=== PATIENT | female | born 1975 | race Caucasian/White ===

== ENCOUNTER 2016-04-22 15:47 | Emergency (ER) | payer SELFPAY ==
[~2016-04-22 15:47] MED LIST: Donnatal Elixir 16.2 MG/5 ML UDCUP ONE
[2016-04-22] MEDS ORDERED: Donnatal Elixir 16.2 MG/5 ML UDCUP ONE (16:03)
[2016-04-22] MEDS ORDERED: Diazepam 5 MG TAB ONE (16:03)
[2016-04-22] MEDS ORDERED: Lidocaine Viscous Sol 2% 15 ml UD Cup ONE (16:12)
[2016-04-22] MEDS ORDERED: Mag-Al Plus 1200 MG/1200 MG/120 MG/30 ML UDCUP ONE (16:12)
[2016-04-22 16:13] LABS: #Basophils 0.1 thou/uL (0.0-0.2); #Eosinphils 0.1 thou/uL (0.0-0.7); #Lymphocytes 3.1 thou/uL (1.20-3.40); #Monocytes 0.6 thou/uL (0.11-0.59); #Neutrophils 6.9 thou/uL (1.40-6.50); %Basophils 1.2 % (0.0-1.0); %Eosinophils 0.7 % (0.0-10.0); %Lymphocytes 28.6 % (21.0-51.0); %Monocytes 5.4 % (0.0-10.0); Hemoglobin 16.7 g/dL (12.0-16.0); Mean Corpuscular Hemoglobin 32.2 pg (27.0-31.0); Mean Corpuscular Volume 91.9 fl (81.0-99.0); Mean Platelet Volume 7.8 fL (7.4-10.4); Platelet Count 285 thou/uL (130-400); Red Blood Cell (RBC) Count 5.18 mill/uL (4.20-5.40); White Blood Cell (WBC) Count 10.8 thou/uL (4.8-10.8)
--- NOTE | 2016-04-22 16:23 | RAD ---
CHEST ONE VIEW 04/22/16 HISTORY: Chest pain. FINDINGS: No comparison. The cardiac silhouette is magnified by projection. Pulmonary vasculature is unremarka ble. Mediastinum is midline. There is no confluent air space consolidation, or evidence of pneumotho rax. laboratory monitor leads overlie the chest. IMPRESSION: No active cardiopulmonary abnormalities are demonstrated. POS: [facility]
[2016-04-22 16:33] LABS: ALT (SGPT) 23 U/L (0-55); AST (SGOT) 22 U/L (5-34); Albumin 4.7 g/dL (3.5-5.0); Alkaline Phosphatase 171 U/L (40-150); Anion Gap 19 mmol/L (10-20); BUN (Urea Nitrogen) 11 mg/dL (7.0-18.7); Bilirubin, Total 0.5 mg/dL (0.2-1.2); Calc. Creatinine Clearance 0 mL/min (70-130); Calcium 9.9 mg/dL (7.8-10.44); Carbon Dioxide 23 mmol/L (22-29); Chloride 99 mmol/L (98-107); Estimated GFR-MDRD 84; Globulin 3.1 g/dL (2.4-3.5); Glucose 113 mg/dL (70-105); Potassium 4.8 mmol/L (3.5-5.1); Protein, Total 7.8 g/dL (6.0-8.3); Sodium 136 mmol/L (136-145)
[2016-04-22 16:35] LABS: CKMB 4.1 ng/mL (0-6.6); Troponin I Less than 0.010 ng/mL (< 0.028)
--- NOTE | 2016-04-22 16:44 | ERRECORD ---
[facility] EMERGENCY RECORD HPI CHEST PAIN (16:03 SHAN) CHIEF COMPLAINT: Patient presents for evaluation of chest pain. HISTORIAN: History provided by patient, History provided by patient's family, pain for about 1.5 to 2 hours; much anxiety, hurting all over; more in back and chest. TIME COURSE: Gradual onset of symptoms. ASSOCIATED WITH: No associated symptoms. EXACERBATED BY: Patient's condition exacerbated by nothing. ROS (16:04 SHAN) CONSTITUTIONAL: Negative constitutional review of systems, Historian denies chills, denies fever. EYES: Negative eye review of systems. ENT: Negative ears, nose, throat review of systems. CARDIOVASCULAR: Negative cardiovascular review of systems, Historian denies chest pain, Historian denies palpitations. Chest pain. RESPIRATORY: Negative respiratory review of systems, Historian denies cough, denies shortness of breath. GI: Negative gastrointestinal review of systems, Historian denies abdominal pain, denies constipation, denies diarrhea. MUSCULOSKELETAL: Negative musculoskeletal review of systems. SKIN: Negative skin review of systems. NEUROLOGIC: Negative neurologic review of systems. ENDOCRINE: Negative endocrine review of systems. HEMO/LYMPHATIC: Normal hematologic/lymphatic system review. PSYCHIATRIC: Negative psychiatric review of systems. NOTES: All other ROS is negative except as listed in HPI. PAST MEDICAL HISTORY MEDICAL HISTORY: Notes: GRAVES DISEASE, Past medical history includes history of hypertension, which has been treated, Patient is compliant. (ThuApr 22, 2016 15:52 MDEB) FEMALE SURGICAL HISTORY: FRANKLIN MASTECTOMIES WITH RECONSTRUCTION. (15:52 MDEB) NOTES: I have reviewed and agree with the PMH/PSxH/FamHx/SocHx obtained by the nurse. (16:04 SHAN) KNOWN ALLERGIES codeine sulfate (Unconfirmed) Penicillins (Unconfirmed) CURRENT MEDICATIONS amLODIPine: TABLET : Strength - 5 mg : ORAL Patient Dose: 1 tab(s) Oral once a day. (16:44 MDEB) lisinopril: TABLET : Strength - 20 mg : ORAL &a-1R&a+25V*p+0X*c7322Q*c202B*c15G*c2P*p-0X&a-25V&a+1R Name: Ann Frances : 1975 F40 MedRec: [id number] AcctNum: [id number] Prepared: Declan Apr 22, 2016 17:39 by Interface Page 1 of 3 pMD [facility] EMERGENCY RECORD Patient Dose: 1 tab(s) Oral once a day. (16:44 MDEB) methimazole: TABLET : Strength - 10 mg : ORAL Patient Dose: 1 tab(s) Oral once a day. (16:45 MDEB) VITAL SIGNS (15:52 MDEB) VITAL SIGNS: BP: 172/95, Pulse: 93, Resp: 27, Temp: 97.2 (Tympanic), Pain: 8, O2 sat: 100 on Room Air, Time: 04/22/2016 15:52. PHYSICAL EXAM (16:04 SHAN) CONSTITUTIONAL: Vital signs reviewed, Patient appears non toxic, Patient alert and oriented to person, place and time, Pt is in no apparent distress. HEAD: Head exam included findings of head atraumatic, normocephalic. EYES: Eye exam included findings of eyelids normal to inspection, Pupils equally round and reactive to light, Extraocular muscles intact. ENT: ENT exam normal, Nose exam normal, no nasal deformity, no bleeding from nares, Pharynx exam normal, Mouth exam normal, mucous membranes moist. NECK: Neck exam included findings of normal range of motion, Trachea midline. RESPIRATORY CHEST: Respiratory and chest exam normal, Breath sounds clear, No wheezing, No rales, Chest exam included findings of chest movement symmetrical, Chest expansion equal. CARDIOVASCULAR: Cardiovascular assessment normal, Cardiovascular exam included findings of heart rate regular rate and rhythm, Heart sounds normal. ABDOMEN FEMALE: Abdominal exam included findings of abdomen nontender, Bowel sounds normal, no mass, no pulsatile masses, no peritoneal signs. BACK: Back exam included findings of normal inspection, range of motion normal, no costovertebral angle tenderness. UPPER EXTREMITY: Upper extremity exam included findings of inspection normal, Range of motion normal. LOWER EXTREMITY: Lower extremity exam included findings of inspection normal, Range of motion normal. NEURO: Neuro exam findings include patient oriented to person, place and time, Speech normal, no focal motor deficits, no focal sensory deficits. SKIN: Skin exam included findings of skin warm, dry, and normal in color. LYMPHATIC: Lymphatic exam normal. PSYCHIATRIC: Psychiatric exam included findings of patient oriented to person place and time, Normal affect. MEDICATION ADMINISTRATION SUMMARY Drug Name: Valium oral, Dose Ordered: 1 tab(s), Route: Oral, Status: &a-1R&a+25V*p+0X*q4150D*c202B*c15G*c2P*p-0X&a-25V&a+1R Name: Ann Frances : 1975 F40 MedRec: [id number] AcctNum: [id number] Prepared: Declan Apr 22, 2016 17:39 by Interface Page 2 of 3 pMD [facility] EMERGENCY RECORD Given, Time: 16:10 04/22/2016, Drug Name: GI COCKTAIL- GREEN, Dose Ordered: 40 mL, Route: Oral, Status: Given, Time: 16:05 04/22/2016, Detailed record available in Medication Service section. DOCTOR NOTES TEXT: Very anxious patient; relates 'they are playing with my thryroid meds; c/o muscle spasms, and chest and back pain. (16:05 ZACH) Doing better; does not appear to be cardiac; accucheck is erroneous from another chart. (16:41 ZACH) Exam and history more compatible with anxiety, economic and social stresses. Discussed. (17:09 ZACH) PATIENT STATUS: Patient has improved since arrival to emergency department. (16:05 ZACH) DATA REVIEWED: Lab data reviewed, Xray data reviewed, Reviewed EKG. (16:41 ZACH) PROBLEM LIST No recorded problems DIAGNOSIS (17:10 ZACH) FINAL: PRIMARY: Anxiety, ADDITIONAL: atypical chest pain. PRESCRIPTION (17:11 ZACH) Vistaril oral: CAPSULE : 25 mg : ORAL : Quantity: 1 Unit: cap(s) Route: ORAL Schedule: every 4 hours prn Dispense: 50 Unit: cap(s) May substitute. Refills: 2 . NOTES: on up to every 4 hours if needed for anxiety or atypical chest pain. No Refills. DISPOSITION PATIENT: Disposition Type: Discharge, Disposition: *Discharge Home. (17:10 ZACH) Patient left the department. (17:34 HEMANT) Feliciano: HEMANT=RAMIREZ Lucas, Enedina SERRANO=MD Parikh Stanley &a-1R&a+25V*p+0X*q8331O*c202B*c15G*c2P*p-0X&a-25V&a+1R Name: Ann Frances : 1975 F40 MedRec: [id number] AcctNum: [id number] Prepared: Declan Apr 22, 2016 17:39 by Interface Page 3 of 3 pMD MTDD
[2016-04-22 16:53] LABS: Thyroid Stimulating Hormone Less than 0.0025 uIU/mL (0.35-4.94)
--- NOTE | 2016-04-22 16:55 | PICIS ---
[facility] EMERGENCY RECORD TRIAGE (ThuApr 22, 2016 15:52 MDEB) PATIENT: NAME: Ann Frances, AGE: 40, GENDER: female, : Thu1975, TIME OF GREET: ThuApr 22, 2016 15:48, PREFERRED LANGUAGE: Guinean, RACE: WHITE, ETHNICITY: Not or , ECODE BILLING MAP: [facility], SSN: [id number], Zip Code: [address], KG WEIGHT: 63.50, PHONE: , , , PERSON ID: [id number], PCP: danielle. TRIAGE NOTES: BACK PAIN, CHEST PAIN - PAIN INCREASED WITH MOVEMENT ET DEEP BREATHING. COMPLAINT: HIGH RISK COMPLAINT: CHEST PAIN. ADMISSION: URGENCY: 3 Urgent, ADMISSION SOURCE: Home, TRANSPORT: Walk-in, BED: TRIAGE. PAIN: Patient complains of pain described as, aching, on a scale 0-10 patient rates pain as 8. PROVIDERS: TRIAGE NURSE: Enedina Lucas RN. PREVIOUS VISIT ALLERGIES: codeine sulfate, Penicillins. KNOWN ALLERGIES codeine sulfate (Unconfirmed) Penicillins (Unconfirmed) CURRENT MEDICATIONS amLODIPine: TABLET : Strength - 5 mg : ORAL Patient Dose: 1 tab(s) Oral once a day. (16:44 MDEB) lisinopril: TABLET : Strength - 20 mg : ORAL Patient Dose: 1 tab(s) Oral once a day. (16:44 MDEB) methimazole: TABLET : Strength - 10 mg : ORAL Patient Dose: 1 tab(s) Oral once a day. (16:45 MDEB) VITAL SIGNS (15:52 MDEB) VITAL SIGNS: BP: 172/95, Pulse: 93, Resp: 27, Temp: 97.2 (Tympanic), Pain: 8, O2 sat: 100 on Room Air, Time: 04/22/2016 15:52. NURSING PROCEDURE: EKG CHART (15:59 SFRE) EKG: EKG indicated for complaint of chest pain, 12 lead EKG performed on the left chest, done by ramirez conner, first EKG. FOLLOW-UP: After procedure, EKG for interpretation given to Dr. parikh. NURSING PROCEDURE: NURSE NOTES (16:45 MDEB) NURSES NOTES: Notes: PT REPORTS SHE STILL HAS CHEST PAIN WITH BREATHING. DR PARIKH NOTIFED. ORDER DETAILS Order Name: [employer] [facility], Status: Done, Time: 16:00 04/22/2016, &a-1R&a+25V*p+0X*p0764F*c202B*c15G*c2P*p-0X&a-25V&a+1R Name: Ann Frances : 1975 F40 MedRec: [id number] AcctNum: [id number] Prepared: Declan Apr 22, 2016 17:45 by Interface Page 1 of 8 pMD [facility] EMERGENCY RECORD User: HEMANT, - Ordered for: MD Parikh Stanley, - Entered by: MD Parikh Stanley - Tue Apr 22, 2016 15:59, - Quantity: 1, Order Name: Cardiac Profile w/CKMB & Troponin - I, Status: Active, Time: 15:59 04/22/2016, User: ZACH, - Ordered for: MD Parikh Stanley, - Entered by: MD Parikh Stanley - Tue Apr 22, 2016 15:59, - Quantity: 1, Order Name: CBC with Differential, Status: Active, Time: 15:59 04/22/2016, User: ZACH, - Ordered for: MD Parikh Stanley, - Entered by: MD Parikh Stanley - Tue Apr 22, 2016 15:59, - Quantity: 1, Order Name: Comprehensive Metabolic Panel, Status: Active, Time: 15:59 04/22/2016, User: ZACH, - Ordered for: MD Parikh Stanley, - Entered by: MD Parikh Stanley - Tue Apr 22, 2016 15:59, - Quantity: 1, Order Name: D-Dimer (Quantitative), Status: Active, Time: 16:02 04/22/2016, User: ZACH, - Ordered for: MD Parikh Stanley, - Entered by: MD Parikh Stanley - Tue Apr 22, 2016 16:02, - Quantity: 1, Order Name: EKG 12 Lead in Emergency Room, Status: Active, Time: 15:59 04/22/2016, User: ZACH, - Ordered for: MD Parikh Stanley, - Entered by: MD Parikh Stanley - Tue Apr 22, 2016 15:59, - Quantity: 1, Order Name: Free T4 (Free Thyroxine), Status: Active, Time: 16:05 04/22/2016, User: ZACH, - Ordered for: MD Parikh Stanley, - Entered by: MD Parikh Stanley - Tue Apr 22, 2016 16:05, - Quantity: 1, Order Name: Thyroid Stimulating Hormone, Status: Active, Time: 16:06 04/22/2016, User: ZACH, - Ordered for: MD Parikh Stanley, - Entered by: MD Parikh Stanley - Tue Apr 22, 2016 16:06, - Quantity: 1, Order Name: XR Chest 1 View Portable, Status: Active, Time: 16:00 04/22/2016, User: ZACH, - Ordered for: MD Parikh Stanley, - Entered by: MD Parikh Stanley - Tue Apr 22, 2016 16:00, - Quantity: 1. MEDICATION ADMINISTRATION SUMMARY Drug Name: Valium oral, Dose Ordered: 1 tab(s), Route: Oral, Status: Given, Time: 16:10 04/22/2016, Drug Name: GI COCKTAIL- GREEN, Dose Ordered: 40 mL, Route: Oral, &a-1R&a+25V*p+0X*m8617R*c202B*c15G*c2P*p-0X&a-25V&a+1R Name: Ann Frances : 1975 F40 MedRec: [id number] AcctNum: [id number] Prepared: ThuApr 22, 2016 17:45 by Interface Page 2 of 8 pMD [facility] EMERGENCY RECORD Status: Given, Time: 16:05 04/22/2016, Detailed record available in Medication Service section. MEDICATION SERVICE GI COCKTAIL- GREEN: Order: GI COCKTAIL- GREEN - Dose: 40 mL : Oral (phenobarbital/hyoscyamine sulfate/atropine sulfate/scopolamine hydrobromide) [10 mL] Lidocaine Viscous (lidocaine HCl) [10 mL] MAG-AL (magnesium hydroxide/aluminum hydroxide) [20 mL] Ordered by: Monty Parikh MD Entered by: Monty Parikh MD [facility] Apr 22, 2016 16:02 , Acknowledged by: Enedina Lucas RN Apr 22, 2016 16:02 Documented as given by: Enedina Lucas RN [facility] Apr 22, 2016 16:05 Patient, Medication, Dose, Route and Time verified prior to administration. Amount given: 40 ML, Site: Medication administered P.O., Correct patient, time, route, dose and medication confirmed prior to administration, Patient advised of actions and side-effects prior to administration, Allergies confirmed and medications reviewed prior to administration, Patient in position of comfort, Side rails up, Cart in lowest position, Family at bedside. Valium oral: Order: Valium oral (diazepam) - Dose: 1 tab(s) : Oral Schedule: Now Ordered by: Monty Parikh MD Entered by: Monty Parikh MD [facility] Apr 22, 2016 16:01 , Acknowledged by: Enedina Lucas RN [facility] Apr 22, 2016 16:02 Documented as given by: Enedina Lucas RN [facility] Apr 22, 2016 16:10 Patient, Medication, Dose, Route and Time verified prior to administration. Amount given: 10 MG, Site: Medication administered P.O., Correct patient, time, route, dose and medication confirmed prior to administration, Patient advised of actions and side-effects prior to administration, Allergies confirmed and medications reviewed prior to administration, Patient in position of comfort, Side rails up, Cart in lowest position, Family at bedside. HPI CHEST PAIN (16:03 ) CHIEF COMPLAINT: Patient presents for evaluation of chest pain. HISTORIAN: History provided by patient, History provided by patient's family, pain for about 1.5 to 2 hours; much anxiety, hurting all over; more in back and chest. TIME COURSE: Gradual onset of symptoms. ASSOCIATED WITH: No associated symptoms. EXACERBATED BY: Patient's condition exacerbated by nothing. ROS (16:04 SHAN) CONSTITUTIONAL: Negative constitutional review of systems, &a-1R&a+25V*p+0X*l3618F*c202B*c15G*c2P*p-0X&a-25V&a+1R Name: Ann Frances : 1975 F40 MedRec: [id number] AcctNum: [id number] Prepared: ThuApr 22, 2016 17:45 by Interface Page 3 of 8 pMD [facility] EMERGENCY RECORD Historian denies chills, denies fever. EYES: Negative eye review of systems. ENT: Negative ears, nose, throat review of systems. CARDIOVASCULAR: Negative cardiovascular review of systems, Historian denies chest pain, Historian denies palpitations. Chest pain. RESPIRATORY: Negative respiratory review of systems, Historian denies cough, denies shortness of breath. GI: Negative gastrointestinal review of systems, Historian denies abdominal pain, denies constipation, denies diarrhea. MUSCULOSKELETAL: Negative musculoskeletal review of systems. SKIN: Negative skin review of systems. NEUROLOGIC: Negative neurologic review of systems. ENDOCRINE: Negative endocrine review of systems. HEMO/LYMPHATIC: Normal hematologic/lymphatic system review. PSYCHIATRIC: Negative psychiatric review of systems. NOTES: All other ROS is negative except as listed in HPI. PAST MEDICAL HISTORY MEDICAL HISTORY: Notes: GRAVES DISEASE, Past medical history includes history of hypertension, which has been treated, Patient is compliant. (ThuApr 22, 2016 15:52 MDEB) FEMALE SURGICAL HISTORY: FRANKLIN MASTECTOMIES WITH RECONSTRUCTION. (15:52 MDEB) NOTES: I have reviewed and agree with the PMH/PSxH/FamHx/SocHx obtained by the nurse. (16:04 SHAN) PHYSICAL EXAM (16:04 SHAN) CONSTITUTIONAL: Vital signs reviewed, Patient appears non toxic, Patient alert and oriented to person, place and time, Pt is in no apparent distress. HEAD: Head exam included findings of head atraumatic, normocephalic. EYES: Eye exam included findings of eyelids normal to inspection, Pupils equally round and reactive to light, Extraocular muscles intact. ENT: ENT exam normal, Nose exam normal, no nasal deformity, no bleeding from nares, Pharynx exam normal, Mouth exam normal, mucous membranes moist. NECK: Neck exam included findings of normal range of motion, Trachea midline. RESPIRATORY CHEST: Respiratory and chest exam normal, Breath sounds clear, No wheezing, No rales, Chest exam included findings of chest movement symmetrical, Chest expansion equal. CARDIOVASCULAR: Cardiovascular assessment normal, Cardiovascular exam included findings of heart rate regular rate and rhythm, Heart sounds normal. ABDOMEN FEMALE: Abdominal exam included findings of abdomen nontender, Bowel sounds normal, no mass, no pulsatile masses, no &a-1R&a+25V*p+0X*t6139M*c202B*c15G*c2P*p-0X&a-25V&a+1R Name: Ann Frances : 1975 F40 MedRec: [id number] AcctNum: [id number] Prepared: ThuApr 22, 2016 17:45 by Interface Page 4 of 8 pMD [facility] EMERGENCY RECORD peritoneal signs. BACK: Back exam included findings of normal inspection, range of motion normal, no costovertebral angle tenderness. UPPER EXTREMITY: Upper extremity exam included findings of inspection normal, Range of motion normal. LOWER EXTREMITY: Lower extremity exam included findings of inspection normal, Range of motion normal. NEURO: Neuro exam findings include patient oriented to person, place and time, Speech normal, no focal motor deficits, no focal sensory deficits. SKIN: Skin exam included findings of skin warm, dry, and normal in color. LYMPHATIC: Lymphatic exam normal. PSYCHIATRIC: Psychiatric exam included findings of patient oriented to person place and time, Normal affect. EVENTS TRANSFER: Triage to Emergency Triage. (ThuApr 22, 2016 15:52 MDEB) Emergency Triage to Main ED -05. (15:52 MDEB) Removed from Emergency Main ED -05. (17:34 MDEB) DOCTOR NOTES TEXT: Very anxious patient; relates 'they are playing with my thryroid meds; c/o muscle spasms, and chest and back pain. (16:05 SHAN) Doing better; does not appear to be cardiac; accucheck is erroneous from another chart. (16:41 SHAN) Exam and history more compatible with anxiety, economic and social stresses. Discussed. (17:09 SHAN) PATIENT STATUS: Patient has improved since arrival to emergency department. (16:05 SHAN) DATA REVIEWED: Lab data reviewed, Xray data reviewed, Reviewed EKG. (16:41 SHAN) PROBLEM LIST No recorded problems DIAGNOSIS (17:10 SHAN) FINAL: PRIMARY: Anxiety, ADDITIONAL: atypical chest pain. DISPOSITION PATIENT: Disposition Type: Discharge, Disposition: *Discharge Home. (17:10 SHAN) Patient left the department. (17:34 MDEB) INSTRUCTION (17:22 SHAN) DISCHARGE: ANXIETY REACTION, ATYPICAL CHEST PAIN UNKNOWN CAUSE. SPECIAL: 1. vistaril as directed if needed for anxiety &a-1R&a+25V*p+0X*v8560J*c202B*c15G*c2P*p-0X&a-25V&a+1R Name: Ann Frances : 1975 F40 MedRec: [id number] AcctNum: [id number] Prepared: ThuApr 22, 2016 17:45 by Interface Page 5 of 8 pMD [facility] EMERGENCY RECORD 2. try to find personal time and also start a self satisfying habit and allot it some additional personal time every day 3. followup soon with regular provider 4. return if condition worsens. PRESCRIPTION (17:11 [facility]) Vistaril oral: CAPSULE : 25 mg : ORAL : Quantity: 1 Unit: cap(s) Route: ORAL Schedule: every 4 hours prn Dispense: 50 Unit: cap(s) May substitute. Refills: 2 . NOTES: on up to every 4 hours if needed for anxiety or atypical chest pain. No Refills. [facility] *EKG: Image captured from scanner. ADMIN DIGITAL SIGNATURE: MD Parikh Stanley. (16:25 [facility]) MD Parikh Stanley. (17:28 [facility]) RESULTS RADIOLOGY: XR Chest 1 View Portable Observe DT: ThuApr 22, 2016 16:02, CXRP CHEST ONE VIEW 04/22/16 HISTORY: Chest pain. FINDINGS: No comparison. The cardiac silhouette is magnified by projection. Pulmonary vasculature is unremarka ble. Mediastinum is midline. There is no confluent air space consolidation, or evidence of pneumotho rax. cardiac monitor technician leads overlie the chest. IMPRESSION: No active cardiopulmonary abnormalities are demonstrated. POS: [facility] . (16:28 [facility]) LABORATORY: CBC with Differential Collection DT: ThuApr 22, 2016 16:09, White Blood Cell (WBC) Count 10.8 thou/uL, Range (4.8-10.8), Red Blood Cell (RBC) Count 5.18 mill/uL, Range (4.20-5.40), *Hemoglobin 16.7 - H g/dL, Range (12.0-16.0), *Hematocrit 47.6 - H %, Range (36.0-47.0), Mean Corpuscular Volume 91.9 fl, Range (81.0-99.0), &a-1R&a+25V*p+0X*y5894C*c202B*c15G*c2P*p-0X&a-25V&a+1R Name: Ann Frances : 1975 F40 MedRec: [id number] AcctNum: [id number] Prepared: ThuApr 22, 2016 17:45 by Interface Page 6 of 8 pMD [facility] EMERGENCY RECORD *Mean Corpuscular Hemoglobin 32.2 - H pg, Range (27.0-31.0), Mean Corpuscular HGB CONC 35.0 g/dL, Range (32.0-36.0), RBC Distribution Width 12.0 %, Range (11.5-14.5), Platelet Count 285 thou/uL, Range (130-400), Mean Platelet Volume 7.8 fL, Range (7.4-10.4), %Neutrophils 64.0 %, Range (42.0-75.0), %Lymphocytes 28.6 %, Range (21.0-51.0), %Monocytes 5.4 %, Range (0.0-10.0), %Eosinophils 0.7 %, Range (0.0-10.0), *%Basophils 1.2 - H %, Range (0.0-1.0), *#Neutrophils 6.9 - H thou/uL, Range (1.40-6.50), #Lymphocytes 3.1 thou/uL, Range (1.20-3.40), *#Monocytes 0.6 - H thou/uL, Range (0.11-0.59), #Eosinphils 0.1 thou/uL, Range (0.0-0.7), #Basophils 0.1 thou/uL, Range (0.0-0.2). (16:22 ZACH) Accuchek Collection DT: ThuApr 22, 2016 16:03, *Accuchek 290 - H mg/dL, Range (70-110). (16:22 ZACH) D-Dimer (Quantitative) Collection DT: ThuApr 22, 2016 16:09, *D-Dimer Test Less than 0.27 - L *mcg/mL, Range (0.27-0.43), * Reference Range Units: mcg/mL of fibrinogen equivalent, units(FEU) Based upon a retrospective study of [facility] patients in August 2005, a result of Less than 0.44 mcg/mL FEU is, predictive of the absence of a DVT or PE. . (16:29 SFRE) Cardiac Profile w/CKMB & TropI Collection DT: ThuApr 22, 2016 16:09, CKMB 4.1 ng/mL, Range (0-6.6), Troponin I Less than 0.010 ng/mL, Range (< 0.028), Reference Range , 0.00 - 0.028 ng/mL Negative 0.029 - 0.29 ng/mL , Indeterminate Greater or Equal to 0.3 ng/mL Strongly suggests IA , . (16:41 SHAN) Comprehensive Metabolic Panel Collection DT: ThuApr 22, 2016 16:09, Sodium 136 mmol/L, Range (136-145), Potassium 4.8 mmol/L, Range (3.5-5.1), Chloride 99 mmol/L, Range (98-107), Carbon Dioxide 23 mmol/L, Range (22-29), Anion Gap 19 mmol/L, Range (10-20), BUN (Urea Nitrogen) 11 mg/dL, Range (7.0-18.7), Creatinine 0.76 mg/dL, Range (0.6-1.1), Estimated GFR-MDRD 84 , Reference Range for Estimated GFR: Greater than 90, mL/min/1.73 m2 NOTE: The MDRD equation has not been validated for use, with the elderly (over 70 years of age), women, patients with, serious comorbid condition or persons with extremes of &a-1R&a+25V*p+0X*i9181I*c202B*c15G*c2P*p-0X&a-25V&a+1R Name: Ann Frances : 1975 F40 MedRec: [id number] AcctNum: [id number] Prepared: ThuApr 22, 2016 17:45 by Interface Page 7 of 8 pMD [facility] EMERGENCY RECORD body size, muscle, mass, or nutritional status. , *Glucose 113 - H mg/dL, Range (70-105), Calcium 9.9 mg/dL, Range (7.8-10.44), Bilirubin, Total 0.5 mg/dL, Range (0.2-1.2), Protein, Total 7.8 g/dL, Range (6.0-8.3), NOTE: Plasma values are generally 0.3 to 0.5 g/dL higher than serum values, due to the presence of fibrinogen. , Albumin 4.7 g/dL, Range (3.5-5.0), Globulin 3.1 g/dL, Range (2.4-3.5), Alb/Glob Ratio 1.5 g/dL, Range (1.2-2.2), *Alkaline Phosphatase 171 - H U/L, Range (40-150), AST (SGOT) 22 U/L, Range (5-34), ALT (SGPT) 23 U/L, Range (0-55). (16:41 ZACH) Thyroid Stimulating Hormone Collection DT: ThuApr 22, 2016 16:09, *Thyroid Stimulating Hormone Less than 0.0025 - uIU/mL, * L , Range (0.35-4.94). (17:09 ZACH) Free T4 (Free Thyroxine) Collection DT: ThuApr 22, 2016 16:09, Free T4 (Free Thyroxine) 1.00 ng/dL, Range (0.70-1.48). (17:09 ZACH) Feliciano: HEMANT=RAMIREZ Lucas, Enedina ALCANTARA=RAMIREZ Mckeon, Corinna SERRANO=MD Kati, Monty &a-1R&a+25V*p+0X*i4128U*c202B*c15G*c2P*p-0X&a-25V&a+1R Name: Ann Frances : 1975 1 MedRec: [id number] AcctNum: [id number] Prepared: ThuApr 22, 2016 17:45 by Interface Page 8 of 8 pMD MTDD
== END 2016-04-22 17:32 | disposition home or self-care (01) ==
LOC: MADERS 15:47
DX: F41.9 Anxiety disorder, unspecified (principal); I10 Essential (primary) hypertension
CPT/HCPCS: 36416; 71010; 80053; 82553; 84439; 84443; 84484; 85025; 85379; 93005; 36415-59

== ENCOUNTER 2016-12-25 15:30 | Outpatient (CLI) | payer MEDICARE, MEDICAID ==
--- NOTE | 2016-12-25 18:38 | RAD ---
THORACIC SPINE TWO VIEWS: 12/25/16 HISTORY: Arm paresthesia, back pain. FINDINGS/IMPRESSION: There are degenerative changes in the spine. No acute fracture or subluxation or bony destruction id entified. If there is concern for radiculopathy, neuropathy or myelopathy, further evaluation with MRI should be performed. POS: [facility]
--- NOTE | 2016-12-25 18:40 | RAD ---
CERVICAL SPINE: 12/25/16 Seven views. HISTORY: Neck pain with arm paresthesias. Cervical vertebrae maintain height and alignment. Disc spaces are maintained. Very mild degenerative spurring is seen. Foramina appear patent. IMPRESSION: Very mild degenerative changes of the cervical spine. POS: [facility]
== END 2016-12-25 15:31 | disposition home or self-care (01) ==
LOC: MADRAD 15:30
PROVIDERS: ATTEND Family Medicine
DX: R20.2 Paresthesia of skin (principal)
CPT/HCPCS: 72052; 72072

== ENCOUNTER 2017-01-08 15:20 | Outpatient (CLI) | payer MEDICARE, MEDICAID ==
--- NOTE | 2017-01-08 18:18 | RAD ---
LUMBAR SPINE RADIOGRAPHS 3 VIEWS: Date: 01/08/17 CLINICAL HISTORY: Acute bilateral lumbar pain. FINDINGS: There is prominent degenerative hypertrophy of the region of the facet joints at the lower lumbar sp ine/lumbosacral junction. There is a mild levocurvature centered at the upper to mid lumbar spine. N o compression fracture. No obvious subluxation on the lateral projection. IMPRESSION: Degenerative changes of lumbar spine without acute osseous abnormality visualized. POS: ISAIAH
== END 2017-01-08 15:21 | disposition home or self-care (01) ==
LOC: MADRAD 15:20
PROVIDERS: ATTEND Family Medicine
DX: M54.5 Low back pain (principal); M47.816 Spondylosis without myelopathy or radiculopathy, lumbar region
CPT/HCPCS: 72100

== ENCOUNTER 2018-11-09 19:11 | Emergency (ER) | payer MEDICARE, OTHER ==
[2018-11-09] MEDS ORDERED: Ketorolac Tromethamine 60 MG/2 ML VIAL ONE (19:31)
[2018-11-09] MEDS ORDERED: Azithromycin 250 MG TAB ONE (19:31)
== END 2018-11-09 20:02 | disposition home or self-care (01) ==
LOC: MADERS 19:11
DX: L04.0 Acute lymphadenitis of face, head and neck (principal); F41.9 Anxiety disorder, unspecified; F17.210 Nicotine dependence, cigarettes, uncomplicated
CPT/HCPCS: 96372; 99283; J1885

== ENCOUNTER 2018-11-11 19:47 | Emergency (ER) | payer MEDICARE, OTHER ==
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
== END 2018-11-11 21:00 | disposition home or self-care (01) ==
LOC: MADERS 19:47
DX: M54.6 Pain in thoracic spine (principal); I10 Essential (primary) hypertension; F41.9 Anxiety disorder, unspecified; F17.210 Nicotine dependence, cigarettes, uncomplicated; Y04.0XXA Assault by unarmed brawl or fight, initial encounter
CPT/HCPCS: 72072

== ENCOUNTER 2018-11-17 14:28 | Outpatient (CLI) | payer MEDICARE, OTHER ==
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
== END 2018-11-17 14:29 | disposition home or self-care (01) ==
LOC: MADCT 14:28
PROVIDERS: ATTEND Family Medicine
DX: M47.894 Other spondylosis, thoracic region (principal)
CPT/HCPCS: 72128